=== PATIENT | male | born 1970 | race Caucasian/White ===

== ENCOUNTER 2016-08-29 12:01 | Emergency (ER) ==
[2016-08-29 12:06] VITALS: BP 118/79; TEMP 98.9; BMI 23.5
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
== END 2016-08-29 12:35 | disposition home or self-care (01) ==
LOC: ED 12:01
DX: M54.5 Low back pain (principal); F17.210 Nicotine dependence, cigarettes, uncomplicated
CPT/HCPCS: 99282

== ENCOUNTER 2016-09-07 10:12 | Emergency (ER) ==
[2016-09-07 10:17] VITALS: BP 116/80; TEMP 97.6; BMI 22.9
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
[2016-09-07] MEDS ORDERED: SODIUM CHLORIDE 1,000 ML IV STA (11:06)
[2016-09-07] MEDS ORDERED: TORADOL IVP STA (11:10)
[2016-09-07] MEDS ORDERED: ZOFRAN 4 MG/2 ML IVP STA (11:10)
[2016-09-07 11:27] LABS: BASOPHILS # (AUTO) 0.1 K/uL (0-0.2); BASOPHILS % (AUTO) 0.8 % (0.0-3.0); EOSINOPHILS # (AUTO) 0.2 K/ul (0.0-0.7); HEMATOCRIT 43.4 % (42.0-52.0); HEMOGLOBIN 14.5 g/dl (14.0-18.0); IMMATURE GRANULOCYTE % (AUTO) 0.1 % (0.0-5.0); LYMPHOCYTES # (AUTO) 2.5 K/uL (0.60-3.4); LYMPHOCYTES % (AUTO) 32.1 (10.0-50.0); MEAN CORPUSCULAR HEMOGLOBIN 29.5 pg (27.0-31.0); MEAN CORPUSCULAR HGB CONC 33.4 (31.8-35.4); MEAN CORPUSCULAR VOLUME 88.2 fl (80.0-94.0); MONOCYTES # (AUTO) 0.4 K/uL (0.4-2.0); NEUTROPHILS # (AUTO) 4.6 K/ul (2.0-6.9); PLATELET COUNT 243 10^3/uL (140-440); RED BLOOD COUNT 4.92 10^6/ul (4.70-6.10); WHITE BLOOD COUNT 7.67 K/ul (4.2-10.2)
[2016-09-07 11:31] LABS: H. PYLORI ANTIBODY POSITIVE (NEGATIVE); H.PYLORI INTERNAL QC INTERNAL QC VALID
[2016-09-07 11:46] LABS: ALBUMIN 3.6 g/dL (3.4-5.0); ALBUMIN/GLOBULIN RATIO 1.03; ANION GAP 10.1; BILIRUBIN,TOTAL 0.32 mg/dL (0.00-1.20); BUN/CREATININE RATIO 13.63; CALCIUM 9.7 mg/dL (8.2-10.2); CREATININE 0.88 mg/dL (0.60-1.10); POTASSIUM 4.1 mmol/L (3.5-5.1); TOTAL PROTEIN 7.1 g/dL (6.4-8.2)
[2016-09-07 12:27] LABS: BILIRUBIN,URINE Negative (NEGATIVE); KETONES,URINE Negative (NEGATIVE); LEUKOCYTE ESTERASE ,URINE Negative (NEGATIVE); NITRITE,URINE Negative (NEGATIVE); PROTEIN,URINE Negative (NEGATIVE); URINE, BLOOD Negative (NEGATIVE)
[2016-09-07 12:28] LABS: ADD URINE MICROSCOPIC NO
--- NOTE | 2016-09-07 12:45 | CT ---
EXAM: CT abdomen with and without contrast. CT pelvis with and without contrast. HISTORY: Left abdominal pain, tenderness. COMPARISON: 06/25/2015. TECHNIQUE: Multiple axial images of the abdomen and pelvis were obtained prior to and following int ravenous administration of 75 mL of Omnipaque 350, low osmolar. Images reformatted in the coronal p lav[place]. FINDINGS: The lung bases are clear. No acute osseous abnormality identified. The right lobe of the liver is enlarged. The gallbladder, pancreas, spleen, adrenal glands are unre markable. There are punctate nonobstructing renal calculi. No hydronephrosis or perinephric inflam mation identified. The bowel is normal in course and caliber without evidence for obstruction or inflammatory process. The appendix is not seen. Urinary bladder is unremarkable. Numerous phleboliths seen in the pelvi s. No free fluid, free air or lymphadenopathy identified. IMPRESSION: 1. No acute abnormality within the abdomen or pelvis. 2. Bilateral nephrolithiasis. 3. Enlarged right hepatic lobe.
== END 2016-09-07 13:56 | disposition home or self-care (01) ==
LOC: ED 10:12
DX: M54.5 Low back pain (principal); M54.6 Pain in thoracic spine; F17.210 Nicotine dependence, cigarettes, uncomplicated
CPT/HCPCS: 36415; 80053; 81001; 82150; 83690; 85025; 86677; 96361; 96374; 96375; 99283

== ENCOUNTER 2016-10-30 12:39 | Emergency (ER) ==
[2016-10-30 12:47] VITALS: BP 110/74; TEMP 98.9; BMI 23.6
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
== END 2016-10-30 15:07 | disposition home or self-care (01) ==
LOC: ED 12:39
DX: R55 Syncope and collapse (principal); S09.93XA Unspecified injury of face, initial encounter; R04.0 Epistaxis; F17.210 Nicotine dependence, cigarettes, uncomplicated
CPT/HCPCS: 93005; 93010; 99283

== ENCOUNTER 2016-11-22 10:22 | Outpatient (CLI) ==
--- NOTE | 2016-11-22 11:32 | DI ---
EXAM: Four views of the lumbar spine HISTORY: Lower back pain. COMPARISON: CT lumbar spine 01/02/2016 FINDINGS: Vertebral bodies demonstrate no acute compression fracture or subluxation. There is scatt ered anterior disc osteophytes. There is minimal scattered facet arthropathy. No significant neura l foraminal narrowing is noted. The transverse processes are normal. The lumbosacral junction is i ntact. IMPRESSION: Minimal scattered anterior disc osteophytes with no acute osseous abnormality.
== END 2016-11-22 10:23 | disposition home or self-care (01) ==
LOC: RAD 10:22
PROVIDERS: ATTEND Nurse Practitioner Family
DX: M54.5 Low back pain (principal)

== ENCOUNTER 2016-11-23 11:55 | Outpatient (CLI) ==
[2016-11-23 13:03] LABS: BASOPHILS # (AUTO) 0.1 K/uL (0-0.2); BASOPHILS % (AUTO) 0.6 % (0.0-3.0); EOSINOPHILS # (AUTO) 0.2 K/ul (0.0-0.7); EOSINOPHILS % (AUTO) 2.4 % (0.0-7.0); HEMATOCRIT 39.8 % (42.0-52.0); HEMOGLOBIN 13.4 g/dl (14.0-18.0); IMMATURE GRANULOCYTE % (AUTO) 0.3 % (0.0-5.0); LYMPHOCYTES # (AUTO) 2.2 K/uL (0.60-3.4); LYMPHOCYTES % (AUTO) 24.8 (10.0-50.0); MEAN CORPUSCULAR HEMOGLOBIN 30.5 pg (27.0-31.0); MEAN CORPUSCULAR HGB CONC 33.7 (31.8-35.4); MEAN CORPUSCULAR VOLUME 90.5 fl (80.0-94.0); MONOCYTES # (AUTO) 0.4 K/uL (0.4-2.0); MONOCYTES % (AUTO) 4.3 (0-10); NEUTROPHILS # (AUTO) 5.9 K/ul (2.0-6.9); NEUTROPHILS % (AUTO) 67.6; PLATELET COUNT 223 10^3/uL (140-440); WHITE BLOOD COUNT 8.68 K/ul (4.2-10.2)
[2016-11-23 13:37] LABS: ALBUMIN 3.4 g/dL (3.4-5.0); ALBUMIN/GLOBULIN RATIO 1.13; ANION GAP 11.1; BILIRUBIN,TOTAL 0.26 mg/dL (0.00-1.20); BUN/CREATININE RATIO 15.51; CALCIUM 9.1 mg/dL (8.2-10.2); CHOL/HDL RATIO 2.6 (4.5-6.4); CREATININE 1.16 mg/dL (0.60-1.10); POTASSIUM 4.1 mmol/L (3.5-5.1); TOTAL PROTEIN 6.4 g/dL (6.4-8.2)
== END 2016-11-23 11:56 | disposition home or self-care (01) ==
LOC: LAB 11:55
PROVIDERS: ATTEND Nurse Practitioner Family
DX: E75.6 Lipid storage disorder, unspecified (principal); R73.09 Other abnormal glucose; Z11.59 Encounter for screening for other viral diseases
CPT/HCPCS: 36415; 80053; 80061; 80074; 83036; 84439; 84443; 85025

== ENCOUNTER 2016-12-13 08:19 | Emergency (ER) ==
[2016-12-13 08:22] VITALS: BP 106/69; TEMP 97.7; BMI 25.0
[2016-12-13] MEDS ORDERED: LIDOCAINE 1 % AMP 5 ML (SUTURES) ONE (08:30)
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
[2016-12-13] MEDS ORDERED: LIDOCAINE 1 % AMP 5 ML (SUTURES) SUBCUT STA (08:47)
[2016-12-13] MEDS ORDERED: TETANUS DIPHTHERIA TOXOIDS IM ONE (08:47)
[2016-12-13] MEDS ORDERED: TENIVAC IM ONE (09:01)
== END 2016-12-13 09:33 | disposition home or self-care (01) ==
LOC: ED 08:19
DX: S61.214A Laceration without foreign body of right ring finger without damage to nail, initial encounter (principal); F17.210 Nicotine dependence, cigarettes, uncomplicated
CPT/HCPCS: 90471; 99283

== ENCOUNTER 2017-01-09 12:36 | Emergency (ER) ==
[2017-01-09 12:39] VITALS: BP 105/61; TEMP 97.2; BMI 25.1
[2017-01-09 13:55] LABS: BASOPHILS # (AUTO) 0.1 K/uL (0-0.2); BASOPHILS % (AUTO) 0.6 % (0.0-3.0); EOSINOPHILS # (AUTO) 0.2 K/ul (0.0-0.7); EOSINOPHILS % (AUTO) 2.3 % (0.0-7.0); HEMATOCRIT 39.7 % (42.0-52.0); HEMOGLOBIN 13.2 g/dl (14.0-18.0); IMMATURE GRANULOCYTE % (AUTO) 0.3 % (0.0-5.0); LYMPHOCYTES # (AUTO) 2.1 K/uL (0.60-3.4); LYMPHOCYTES % (AUTO) 26.4 (10.0-50.0); MEAN CORPUSCULAR HEMOGLOBIN 30.1 pg (27.0-31.0); MEAN CORPUSCULAR HGB CONC 33.2 (31.8-35.4); MEAN CORPUSCULAR VOLUME 90.6 fl (80.0-94.0); MONOCYTES # (AUTO) 0.3 K/uL (0.4-2.0); MONOCYTES % (AUTO) 3.9 (0-10); NEUTROPHILS # (AUTO) 5.3 K/ul (2.0-6.9); NEUTROPHILS % (AUTO) 66.5; PLATELET COUNT 178 10^3/uL (140-440); RED BLOOD COUNT 4.38 10^6/ul (4.70-6.10); WHITE BLOOD COUNT 7.91 K/ul (4.2-10.2)
[2017-01-09 14:09] LABS: BILIRUBIN,URINE Negative (NEGATIVE); KETONES,URINE Negative (NEGATIVE); LEUKOCYTE ESTERASE ,URINE Negative (NEGATIVE); NITRITE,URINE Negative (NEGATIVE); PROTEIN,URINE Negative (NEGATIVE); URINE, BLOOD Negative (NEGATIVE)
[2017-01-09 14:14] LABS: ADD URINE MICROSCOPIC NO
[2017-01-09 14:16] LABS: ALBUMIN 3.5 g/dL (3.4-5.0); ALBUMIN/GLOBULIN RATIO 1.25; ANION GAP 13.5; BILIRUBIN,TOTAL 0.51 mg/dL (0.00-1.20); BUN/CREATININE RATIO 12.26; CALCIUM 8.5 mg/dL (8.2-10.2); CREATININE 1.06 mg/dL (0.60-1.10); POTASSIUM 3.5 mmol/L (3.5-5.1); TOTAL PROTEIN 6.3 g/dL (6.4-8.2)
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
== END 2017-01-09 14:42 | disposition home or self-care (01) ==
LOC: ED 12:36
DX: R60.0 Localized edema (principal); D64.9 Anemia, unspecified; F17.210 Nicotine dependence, cigarettes, uncomplicated
CPT/HCPCS: 36415; 80053; 81001; 85025; 99282

== ENCOUNTER 2017-02-02 09:37 | Emergency (ER) ==
[2017-02-02 09:50] VITALS: BP 121/80; TEMP 98.7; BMI 23.3
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
--- NOTE | 2017-02-02 13:48 | DI ---
EXAM: Right elbow; AP, lateral, and oblique views HISTORY: Right elbow pain FINDINGS: Minimal marginal osteophyte formation is detected the humeral ulnar articulation. No elbo w joint effusion or radiopaque foreign bodies are detected. No fracture or subluxation are detected. OPINION: No fracture or subluxation. 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
== END 2017-02-02 10:13 | disposition home or self-care (01) ==
LOC: ED 09:37
DX: M25.521 Pain in right elbow (principal); F17.210 Nicotine dependence, cigarettes, uncomplicated
CPT/HCPCS: 99283

== ENCOUNTER 2017-05-08 07:50 | Emergency (ER) ==
[2017-05-08 07:55] VITALS: BP 134/88; TEMP 98.3; BMI 24.9
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
== END 2017-05-08 08:43 | disposition home or self-care (01) ==
LOC: ED 07:50
DX: S02.5XXB Fracture of tooth (traumatic), initial encounter for open fracture (principal); K02.7 Dental root caries; F17.210 Nicotine dependence, cigarettes, uncomplicated
CPT/HCPCS: 99282

== ENCOUNTER 2017-09-24 06:40 | Emergency (ER) ==
[2017-09-24 06:49] VITALS: BP 108/77; TEMP 97.2; BMI 24.5
--- NOTE | 2017-09-24 07:56 | CT ---
EXAM: CT ABDOMEN AND PELVIS HISTORY: Nausea, vomiting, diarrhea, pain TECHNIQUE: CT abdomen and pelvis without intravenous contrast. Images were reconstructed using 5 mm section thickness. Reformations were prepared. COMPARISON: 09/07/2016 FINDINGS: Diagnostic limitations exist without including contrast enhanced images. No focal hepatic or splenic lesions. Gallbladder, pancreas and adrenal glands are within normal limits. There may be a few pun ctate calcifications within the kidneys. No hydronephrosis or perinephric fat stranding. The ureter s have no evidence of calculus or obstruction. Normal abdominal aorta. Stomach is within normal limits. The appendix has been removed. Bowel gas pattern is within normal l imits. Minimal prostate enlargement. Urinary bladder is unremarkable. There is no ascites or infla mmatory infiltration of the abdominal fat. No ventral abdominal wall hernia. Bones reveal no acute abnormality and lung bases are clear. No pn eumoperitoneum. IMPRESSION: 1. Unremarkable bowel gas pattern. No evidence of active enterocolitis. The appendix has been ghanshyam gilda. There is no ascites, inflammatory infiltration of the abdominal fat or free air. 2. Possible punctate renal calculi. No hydronephrosis or ureteral obstruction.
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
== END 2017-09-24 08:16 | disposition home or self-care (01) ==
LOC: ED 06:40
DX: K52.9 Noninfective gastroenteritis and colitis, unspecified (principal); F17.210 Nicotine dependence, cigarettes, uncomplicated
CPT/HCPCS: 36415; 80053; 81001; 85025; 87502; 99283

== ENCOUNTER 2017-10-08 11:01 | Outpatient (CLI) ==
--- NOTE | 2017-10-08 12:08 | DI ---
EXAM: Two views of the right hip HISTORY: Right hip pain. COMPARISON: CT abdomen pelvis 09/24/2017. FINDINGS: Right hip demonstrates narrowing with subchondral sclerosis and minimal osteophyte formati on. No displaced fracture is identified. The adjacent osseous structures the pelvis are normal. Th ere are phleboliths noted. The soft tissues are normal. IMPRESSION: Degenerative change of the right hip with no significant interval change.
== END 2017-10-08 11:02 | disposition home or self-care (01) ==
LOC: RAD 11:01
PROVIDERS: ATTEND Family Medicine
DX: M25.551 Pain in right hip (principal)

== ENCOUNTER 2018-04-02 12:01 | Emergency (ER) ==
[2018-04-02 12:05] VITALS: BP 122/82; TEMP 97.6; BMI 21.5
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
--- NOTE | 2018-04-02 12:51 | DI ---
Exam: Right hip two-view. HISTORY: Pain. Comparison: 10/08/2017. Findings: Two images of the right hip demonstrate moderate to severe degenerative disease of the rig ht hip with near bone on bone morphology along the superior margin. There is no subchondral lucency or collapse. The adjacent right maximilian pelvis appears intact. No focal soft tissue swelling is seen. Impressions: Moderate to severe degenerative disease of the right hip with no acute fracture or disl ocation.
== END 2018-04-02 13:17 | disposition home or self-care (01) ==
LOC: ED 12:01
DX: M25.551 Pain in right hip (principal); F17.210 Nicotine dependence, cigarettes, uncomplicated
CPT/HCPCS: 99283

== ENCOUNTER 2018-08-25 09:06 | Emergency (ER) ==
[2018-08-25 09:11] VITALS: BP 106/71; TEMP 97.6; BMI 24.2
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
== END 2018-08-25 09:41 | disposition home or self-care (01) ==
LOC: ED 09:06
DX: M25.551 Pain in right hip (principal); F17.210 Nicotine dependence, cigarettes, uncomplicated
CPT/HCPCS: 99282

== ENCOUNTER 2018-12-08 11:08 | Outpatient (CLI) | END 2018-12-08 11:09 | disposition home or self-care (01) | LOC: RHC-LAB 11:08 → FCC-LAB 11:09 | PROVIDERS: ATTEND Family Medicine | DX: R61 Generalized hyperhidrosis (principal); R53.83 Other fatigue; R53.81 Other malaise; D64.9 Anemia, unspecified | CPT/HCPCS: 36415; 84439; 84443; 85025 ==